=== PATIENT | female | born 1945 | race Caucasian/White ===

== ENCOUNTER → 2020-07-20 | Outpatient (CLI) | payer MEDICARE ==
--- NOTE | 2020-07-20 13:03 | PE ---
Nuclear medicine PET/CT HISTORY: Breast carcinoma bilateral, initial, C 50.411 No comparisons Patient received 10.7 mCi F-18 FDG intravenously delayed scanning was performed through the skull bas e to the mid thighs. Localization and attenuation correction CT scan was performed. Chest and neck: The supraclavicular node on the left shows enlargement, there is associated hypermeta bolic uptake, SUV 8.3, the node measures approximately 2.3 cm. Left axillary nodes show mild uptake b ilaterally in the SVC 2.5 on the left, 2.4 the right, there is likely postop change on the right. Sub carinal node shows hypermetabolic uptake. Internal mammary node is present on the right, SUV 2 and al rogers the anterior mediastinum, axial image #90 mild uptake, SUV 2.6. Incidental note of coronary arter y calcifications. There is mild uptake along the musculature the lower aspect of the left lateral destiny st, patient is post bilateral mastectomy. No evident lung mass, no pleural pericardial effusion. ABDOMEN: There is an hypodense foci within the liver towards the dome anteriorly in the right lobe, l esion measures 2 cm with associated hypermetabolic uptake SUV 4.3 and also hypodense focus towards th e ankur hepatus and along the falciform ligament is associated uptake, there is uptake with associate d adenopathy the level of the ankur, there is associated hypermetabolic uptake, SUV 7.4. Contracted g allbladder noted incidentally. There is retroperitoneal adenopathy with associated hypermetabolic upt augusto in the aortocaval level, SUV 4.7-5.9, 7.2 in the retroperitoneum. Right kidney shows marked hydro nephrosis, there is Only thinned cortex on the right suggesting chronic finding. There is uptake seen along the level of the bowel, some high dense material is present which may be due to luminal medication which is radiod ense. Uptake along the bowel is felt likely to be physiologic. There is adenopathy along the right pe lvic sidewall with associated uptake, bilateral external iliac chain nodes also shows some uptake SUV 7.1-7.6. Noted centrally within the pelvis, axial image 198 shows some uptake. Some soft tissue dens ity just deep to the umbilical hernia also shows uptake, scattered mesenteric nodes present with some associated uptake, SUV 6.7. There is some nodularity at the posterior aspect of the liver possibly r ight adrenal gland, SUV 3.3 Osseous structures show some possible posterior rib uptake on the right lower ribs, SUV 4.6. There is facet arthropathy, degenerative disc change in the lower lumbar spine. impression: Metastatic disease
== END | disposition home or self-care (01) ==
LOC: RADPETMAIN 08:56
PROVIDERS: ATTEND Internal Medicine Hematology & Oncology
DX: C50.411 Malignant neoplasm of upper-outer quadrant of right female breast (principal); Z90.13 Acquired absence of bilateral breasts and nipples
CPT/HCPCS: 78815; A9552

== ENCOUNTER 2020-08-13 12:06 | Emergency (ER) | payer MEDICARE ==
[2020-08-13 12:23] VITALS: TEMP 97.9
[2020-08-13] MEDS ORDERED: SODIUM CHLORIDE 0.9% 500 ML 500 ML IV ONE (12:39)
[2020-08-13] MEDS ORDERED: SODIUM CHLORIDE 0.9% 1,000 ML IV ONE (12:39)
--- NOTE | 2020-08-13 12:51 | ED ---
General Adult HPI - General Chief complaint: Nausea/Vomiting/Diarrhea Stated complaint: nausea from chemo Time Seen by Provider: 08/13/20 12:15 Source: patient, RN notes reviewed, old records reviewed Mode of arrival: ambulatory Limitations: no limitations - History of Present Illness Initial comments: This is a 75-year-old female who presents emergency Department stating that she is feeling weak little lightheaded and has had some occasional vomiting. Patient also states she's had diarrhea since she started chemo 2 weeks ago but over the last 2 days she's been taken Imodium she's had no more diarrhea. Patient denies any chest pain difficulty breathing or shortness of breath she states she has an occasional dry cough. Patient denies any headache patient denies numbness or focal weakness. Patient denies any specific area of abdominal pain however she states she does have a little bit of cramping occasion the left side now that she is not having diarrhea. - Related Data Home Medications Medication Instructions Recorded Confirmed Abemaciclib [Verzenio] 150 mg PO BID 08/13/20 08/13/20 Acetaminophen Tab [Tylenol Tab] 500 mg PO BID 08/13/20 08/13/20 Aspirin EC [Ecotrin Low Dose] 81 mg PO DAILY 08/13/20 08/13/20 Cholecalciferol [Vitamin D3 (25 50 mcg PO DAILY 08/13/20 08/13/20 Mcg = 1000 Iu)] Cholestyramine (with Sugar) 4 gm PO HS 08/13/20 08/13/20 [Questran] FLUoxetine HCL [PROzac] 40 mg PO DAILY 08/13/20 08/13/20 Ibuprofen [Motrin] 600 mg PO DAILY PRN 08/13/20 08/13/20 Letrozole [Femara] 2.5 mg PO DAILY 08/13/20 08/13/20 Ondansetron HCl [Zofran] 4 mg PO BID 08/13/20 08/13/20 Ondansetron [Zofran ODT] 4 mg PO Q6H 08/13/20 08/13/20 Venlafaxine HCl ER [Effexor Xr] 150 mg PO DAILY 08/13/20 08/13/20 Vitamin B Complex 1 cap PO DAILY 08/13/20 08/13/20 Zinc Sulfate [Orazinc] 220 mg PO DAILY 08/13/20 08/13/20 diphenhydrAMINE HCL [Benadryl] 25 mg PO DAILY PRN 08/13/20 08/13/20 lisinopriL 40 mg PO DAILY 08/13/20 08/13/20 traZODone HCL 150 mg PO HS 08/13/20 08/13/20 Allergies Allergy/AdvReac Type Severity Reaction Status Date / Time No Known Allergies Allergy Verified 08/13/20 15:06 Review of Systems ROS Statement: Those systems with pertinent positive or pertinent negative responses have been documented in the HPI. ROS Other: All systems not noted in ROS Statement are negative. Past Medical History Past Medical History: Cancer, Hypertension, Myocardial Infarction ([place]) Additional Past Medical History / Comment(s): breast and ovarian cancer History of Any Multi-Drug Resistant Organisms: None Reported Past Surgical History: Breast Surgery, Heart Catheterization With Stent, Hysterectomy Past Psychological History: Anxiety Smoking Status: Former smoker Past Alcohol Use History: None Reported Past Drug Use History: None Reported General Exam - General Exam Comments Initial Comments: GENERAL: Patient is well-developed and well-nourished. Patient is nontoxic and well- hydrated and is in mild distress. ENT: Neck is soft and supple. No significant lymphadenopathy is noted. Oropharynx is clear. Moist mucous membranes. Neck has full range of motion without eliciting any pain. EYES: The sclera were anicteric and conjunctiva were pink and moist. Extraocular movements were intact and pupils were equal round and reactive to light. Eyelids were unremarkable. PULMONARY: Unlabored respirations. Good breath sounds bilaterally. No audible rales rhonchi or wheezing was noted. CARDIOVASCULAR: There is a regular rate and rhythm without any murmurs gallops or rubs. ABDOMEN: Soft and nontender with normal bowel sounds. SKIN: Skin is clear with no lesions or rashes and otherwise unremarkable. NEUROLOGIC: Patient is alert and oriented x3. Cranial nerves II through XII are grossly intact. Motor and sensory are also intact. Normal speech, volume and content. Symmetrical smile. MUSCULOSKELETAL: Normal extremities with adequate strength and full range of motion. No lower extremity swelling or edema. No calf tenderness. LYMPHATICS: No significant lymphadenopathy is noted PSYCHIATRIC: Normal psychiatric evaluation. Limitations: no limitations Course Vital Signs 08/13/20 08/13/20 08/13/20 12:16 14:23 15:23 Temperature 97.9 F Pulse Rate 85 82 Respiratory 18 22 20 Rate Blood Pressure 94/57 163/79 152/72 O2 Sat by Pulse 98 98 99 Oximetry 08/13/20 16:23 Temperature Pulse Rate 84 Respiratory 18 Rate Blood Pressure 147/80 O2 Sat by Pulse 99 Oximetry Medical Decision Making - Lab Data Result diagrams: 08/13/20 12:43 08/13/20 12:43 Lab Results 08/13/20 08/13/20 08/13/20 Range/Units 12:43 12:43 12:43 WBC 4.3 (3.8-10.6) k/uL RBC 3.66 L (3.80-5.40) m/uL Hgb 10.6 L (11.4-16.0) gm/dL Hct 31.4 L (34.0-46.0) % MCV 85.7 (80.0-100.0) fL MCH 28.9 (25.0-35.0) pg MCHC 33.7 (31.0-37.0) g/dL RDW 13.5 (11.5-15.5) % Plt Count 240 (150-450) k/uL MPV 6.9 Neutrophils % 69 % Lymphocytes % 25 % Monocytes % 4 % Eosinophils % 0 % Basophils % 0 % Neutrophils # 3.0 (1.3-7.7) k/uL Lymphocytes # 1.1 (1.0-4.8) k/uL Monocytes # 0.2 (0-1.0) k/uL Eosinophils # 0.0 (0-0.7) k/uL Basophils # 0.0 (0-0.2) k/uL Sodium 138 (137-145) mmol/L Potassium 3.7 (3.5-5.1) mmol/L Chloride 111 H (98-107) mmol/L Carbon Dioxide 19 L (22-30) mmol/L Anion Gap 8 mmol/L BUN 31 H (7-17) mg/dL Creatinine 1.11 H (0.52-1.04) mg/dL Est GFR (CKD-EPI)AfAm 57 (>60 ml/min/1.73 sqM) Est GFR (CKD-EPI)NonAf 50 (>60 ml/min/1.73 sqM) Glucose 118 H (74-99) mg/dL Calcium 9.8 (8.4-10.2) mg/dL Magnesium 1.6 (1.6-2.3) mg/dL Total Bilirubin 0.2 (0.2-1.3) mg/dL AST 29 (14-36) U/L ALT 43 H (4-34) U/L Alkaline Phosphatase 129 H (38-126) U/L Total Protein 7.2 (6.3-8.2) g/dL Albumin 3.8 (3.5-5.0) g/dL Urine Color Yellow Urine Appearance Cloudy H (Clear) Urine pH 5.5 (5.0-8.0) Ur Specific [place] 1.021 (1.001-1.035) Urine Protein 1+ H (Negative) Urine Glucose (UA) Negative (Negative) Urine Ketones Negative (Negative) Urine Blood Moderate H (Negative) Urine Nitrite Negative (Negative) Urine Bilirubin Negative (Negative) Urine Urobilinogen <2.0 (<2.0) mg/dL Ur Leukocyte Esterase Negative (Negative) Urine RBC 114 H (0-5) /hpf Urine WBC 5 (0-5) /hpf Ur Squamous Epith Cells <1 (0-4) /hpf Urine Bacteria Occasional H (None) /hpf Hyaline Casts 6 H (0-2) /lpf Granular Casts 4 (0) /lpf Urine Mucus Rare H (None) /hpf Disposition Clinical Impression: Medication adverse effect, Nausea & vomiting, Diarrhea, Dehydration, Hematuria Disposition: HOME SELF-CARE Condition: Good Instructions (If sedation given, give patient instructions): Acute Nausea and Vomiting (ED), Acute Diarrhea (ED) Additional Instructions: Patient should continue taking Zofran prior to every meal. Patient isn't to try to have more oral intake. Patient should follow-up with her oncologist. Is patient prescribed a controlled substance at d/c from ED?: No Referrals: Marco Antonio Ochoa MD [STAFF PHYSICIAN] - 1-2 days Time of Disposition: 16:22
[2020-08-13 13:11] LABS: Basophils % (A) 0 %; Eosinophils % (A) 0 %; HCT 31.4 % (34.0-46.0); HGB 10.6 gm/dL (11.4-16.0); Lymphocytes # (A) 1.1 k/uL (1.0-4.8); Lymphocytes % (A) 25 %; MCH 28.9 pg (25.0-35.0); MCHC 33.7 g/dL (31.0-37.0); MCV 85.7 fL (80.0-100.0); Mean Platelet Volume 6.9; Monocytes # (A) 0.2 k/uL (0-1.0); Monocytes % (A) 4 %; Neutrophils % (A) 69 %; Platelet Count 240 k/uL (150-450); RBC 3.66 m/uL (3.80-5.40); RDW 13.5 % (11.5-15.5); WBC 4.3 k/uL (3.8-10.6)
[2020-08-13 13:24] LABS: Albumin 3.8 g/dL (3.5-5.0); Calcium 9.8 mg/dL (8.4-10.2); Magnesium 1.6 mg/dL (1.6-2.3); Potassium 3.7 mmol/L (3.5-5.1); Total Bilirubin 0.2 mg/dL (0.2-1.3); Total Protein 7.2 g/dL (6.3-8.2)
[2020-08-13 15:10] LABS: Appearance,Urine Cloudy (Clear); Bacteria,Urine Occasional /hpf; Bilirubin,Urine Negative (Negative); Blood,Urine Moderate (Negative); Color,Urine Yellow; Glucose,Urine (UA) Negative (Negative); Granular Casts,Urine 4 /lpf (0); Hyaline Casts,Urine 6 /lpf (0-2); Ketones,Urine Negative (Negative); Leukocyte Esterase,Urine Negative (Negative); Mucus,Urine Rare /hpf; Nitrite,Urine Negative (Negative); PH, Urine 5.5 (5.0-8.0); Protein,Urine 1+ (Negative); RBC,Urine 114 /hpf (0-5); Specific Gravity,Urine 1.021 (1.001-1.035); Squamous Epithelial Cell,Urine <1 /hpf (0-4); Urobilinogen,Urine <2.0 mg/dL (<2.0); WBC,Urine 5 /hpf (0-5)
--- NOTE | 2020-08-13 15:31 | XR ---
EXAMINATION TYPE: XR KUB DATE OF EXAM: 08/13/2020 3:08 PM CLINICAL HISTORY: Abdominal pain. History of metastatic breast cancer. TECHNIQUE: Two Upright KUB images of the abdomen are obtained. COMPARISON: PET/CT July 20, 2020. FINDINGS: Lung bases are clear. New Prominent small and large bowel loops with multiple air-fluid le vels. Surgical sutures left lower quadrant are redemonstrated. Surgical clips overlying the mid to lo wer abdomen into the pelvis are redemonstrated. Surgical clips overlie the right breast. No free air. Gas seen in nondistended rectum. Spurring and disc space narrowing right L4-L5 level. IMPRESSION: Overall nonspecific bowel gas pattern currently.
[2020-08-13] MEDS ORDERED: ONDANSETRON 4 MG/2 ML VIAL IVP STA (16:03)
[2020-08-13 16:54] VITALS: BP 147/80; PULSE 84; RESP 18
== END 2020-08-13 18:13 | disposition home or self-care (01) ==
LOC: EC 12:06
DX: R11.2 Nausea with vomiting, unspecified (principal); R19.7 Diarrhea, unspecified; E86.0 Dehydration; R31.9 Hematuria, unspecified; T45.1X5A Adverse effect of antineoplastic and immunosuppressive drugs, initial encounter; I10 Essential (primary) hypertension; I25.10 Atherosclerotic heart disease of native coronary artery without angina pectoris; F41.9 Anxiety disorder, unspecified; Z87.891 Personal history of nicotine dependence; Z79.82 Long term (current) use of aspirin
CPT/HCPCS: 36415; 80053; 83735; 85025; 81001; 74018; 99284; 96374; 96361 ×4; J2405

== ENCOUNTER → 2020-08-21 | Outpatient (CLI) | payer MEDICARE ==
--- NOTE | 2020-08-21 16:12 | XR ---
EXAMINATION TYPE: XR chest 2V DATE OF EXAM: 08/21/2020 COMPARISON: NONE HISTORY: C50.411 C56.1 M10.9 I10 and shortness of breath TECHNIQUE: Frontal and lateral views of the chest are obtained. FINDINGS: There is no focal air space opacity, pleural effusion, or pneumothorax seen. The cardiac silhouette size is within normal limits. Aorta is dense. Patient is rotated. Surgical clips are note d over the right lower chest. Air coronary artery calcifications. The osseous structures are intact. IMPRESSION: No acute cardiopulmonary process. Artery disease.
== END | disposition home or self-care (01) ==
LOC: RADXRMAIN 15:48
PROVIDERS: ATTEND Internal Medicine Hematology & Oncology
DX: I25.10 Atherosclerotic heart disease of native coronary artery without angina pectoris (principal)
CPT/HCPCS: 71046

== ENCOUNTER 2022-03-28 11:55 | Emergency (ER) | payer MEDICARE ==
--- NOTE | 2022-03-28 13:18 | XR ---
EXAMINATION TYPE: XR KUB DATE OF EXAM: 03/28/2022 COMPARISON: 08/13/2020 INDICATION: Abdomen pain TECHNIQUE: Single view abdomen upright view FINDINGS: Colonic bowel gas appears to be present. Some nonspecific small bowel gas within the midabdomen. Ther e may be a colostomy on the left. There is a stent like structure within the mid pelvis. Correlate wi th patient history. Multiple surgical clips are present. Organomegaly is not evident. Psoas margins are normal. IMPRESSION: 1. Nonspecific abdomen.
[2022-03-28] MEDS ORDERED: MORPHINE SULFATE 4 MG/ML SYRINGE IVP STA (13:48)
[2022-03-28] MEDS ORDERED: FAMOTIDINE 20 MG/2 ML VIAL IV STA (13:48)
[2022-03-28] MEDS ORDERED: SODIUM CHLORIDE 0.9% 500 ML 500 ML IV STA ×2 (13:48→15:16)
--- NOTE | 2022-03-28 13:51 | ED ---
General Adult HPI - General Chief complaint: Abdominal Pain Stated complaint: Abd Pain Time Seen by Provider: 03/28/22 13:26 Source: patient, RN notes reviewed Mode of arrival: ambulatory Limitations: no limitations - History of Present Illness Initial comments: Patient is a pleasant 76-year-old female presenting to the emergency Department with abdominal pain. Symptoms have worsened the past couple of days. Patient does have some chronic pain secondary to history of active ovarian cancer. Patient is currently on hormonal replacement for this. Patient states she is still tolerating oral intake. Patient is still having stool through her ostomy bag however may be somewhat less than normal. - Related Data Home Medications Medication Instructions Recorded Confirmed Acetaminophen Tab [Tylenol Tab] 1,000 mg PO Q6H PRN 08/13/20 03/28/22 FLUoxetine HCL [PROzac] 40 mg PO DAILY 08/13/20 03/28/22 Ibuprofen [Motrin] 600 mg PO Q8H PRN 08/13/20 03/28/22 Letrozole [Femara] 2.5 mg PO DAILY 08/13/20 03/28/22 Venlafaxine HCl ER [Effexor Xr] 150 mg PO DAILY 08/13/20 03/28/22 lisinopriL 40 mg PO DAILY 08/13/20 03/28/22 traZODone HCL 150 mg PO HS 08/13/20 03/28/22 Atorvastatin [Lipitor] 40 mg PO HS 03/28/22 03/28/22 carvediloL [Coreg] 6.25 mg PO BID 03/28/22 03/28/22 Allergies Allergy/AdvReac Type Severity Reaction Status Date / Time No Known Allergies Allergy Verified 03/28/22 14:44 Review of Systems ROS Statement: Those systems with pertinent positive or pertinent negative responses have been documented in the HPI. ROS Other: All systems not noted in ROS Statement are negative. Constitutional: Denies: fever Eyes: Denies: eye pain ENT: Denies: ear pain Cardiovascular: Denies: chest pain Endocrine: Denies: fatigue Gastrointestinal: Reports: as per HPI, abdominal pain Genitourinary: Denies: dysuria Skin: Denies: rash Neurological: Denies: weakness Past Medical History Past Medical History: Cancer, Hypertension, Myocardial Infarction ([place]) Additional Past Medical History / Comment(s): breast and ovarian cancer History of Any Multi-Drug Resistant Organisms: None Reported Past Surgical History: Breast Surgery, Heart Catheterization With Stent, Hysterectomy Past Psychological History: Anxiety Smoking Status: Former smoker Past Alcohol Use History: None Reported Past Drug Use History: None Reported General Exam Limitations: no limitations General appearance: alert, in no apparent distress Head exam: Present: atraumatic Eye exam: Present: normal appearance Neck exam: Present: normal inspection Respiratory exam: Present: normal lung sounds bilaterally Cardiovascular Exam: Present: regular rate, normal rhythm Expanded Peripheral pulses: 2+: Dorsalis Pedis (R), Dorsalis Pedis (L) GI/Abdominal exam: Present: soft, tenderness (Moderate left-sided tenderness), diminished bowel sounds. Absent: distended, guarding, rebound, rigid, pulsatile mass Extremities exam: Present: normal inspection Neurological exam: Present: alert Psychiatric exam: Present: normal affect, normal mood Skin exam: Present: normal color Course Vital Signs 03/28/22 03/28/22 12:16 14:18 Temperature 98 F Pulse Rate 80 86 Respiratory 16 18 Rate Blood Pressure 94/55 126/89 O2 Sat by Pulse 99 Oximetry EKG Findings - EKG Results: EKG: interpreted by ERMD, sinus rhythm, normal axis, normal QRS, normal ST/T Medical Decision Making - Medical Decision Making Case was discussed with Dr. Obrien who does recommend transfer secondary to bowel stent. Patient again reevaluated. Patient is resting comfortably in bed. Patient and family updated on results and concerns as well as recommendation for transfer. They're made aware that if this is obstruction, lack of treatment could lead to further or worsened surgery and potentially life-threatening. Despite this they do refuse transfer. They will leave AGAINST MEDICAL ADVICE. Patient states she feels fine and agrees with what daughter says. Daughter does demonstrate medical decision making and states if symptoms worsen they will take patient to [facility]. This is where patient does have her treatment. Patient has discontinued chemotherapy per daughter. - Lab Data Result diagrams: 03/28/22 14:12 03/28/22 14:12 Lab Results 03/28/22 03/28/22 03/28/22 Range/Units 14:12 14:12 14:12 WBC 12.4 H (3.8-10.6) k/uL RBC 3.31 L (3.80-5.40) m/uL Hgb 8.7 L (11.4-16.0) gm/dL Hct 27.5 L (34.0-46.0) % MCV 83.0 (80.0-100.0) fL MCH 26.2 (25.0-35.0) pg MCHC 31.5 (31.0-37.0) g/dL RDW 14.9 (11.5-15.5) % Plt Count 338 (150-450) k/uL MPV 8.0 Neutrophils % 89 % Lymphocytes % 6 % Monocytes % 3 % Eosinophils % 0 % Basophils % 0 % Neutrophils # 11.0 H (1.3-7.7) k/uL Lymphocytes # 0.8 L (1.0-4.8) k/uL Monocytes # 0.4 (0-1.0) k/uL Eosinophils # 0.0 (0-0.7) k/uL Basophils # 0.0 (0-0.2) k/uL Hypochromasia Slight PT 11.8 (9.0-12.0) sec INR 1.1 (<1.2) APTT 28.2 (22.0-30.0) sec Sodium 135 L (137-145) mmol/L Potassium 3.6 (3.5-5.1) mmol/L Chloride 103 (98-107) mmol/L Carbon Dioxide 23 (22-30) mmol/L Anion Gap 9 mmol/L BUN 42 H (7-17) mg/dL Creatinine 1.62 H (0.52-1.04) mg/dL Est GFR (CKD-EPI)AfAm 36 (>60 ml/min/1.73 sqM) Est GFR (CKD-EPI)NonAf 31 (>60 ml/min/1.73 sqM) Glucose 96 (74-99) mg/dL Calcium 8.6 (8.4-10.2) mg/dL Total Bilirubin 0.4 (0.2-1.3) mg/dL AST 92 H (14-36) U/L ALT 88 H (4-34) U/L Alkaline Phosphatase 173 H (38-126) U/L Troponin I (0.000-0.034) ng/mL Total Protein 6.5 (6.3-8.2) g/dL Albumin 3.1 L (3.5-5.0) g/dL Amylase 47 (30-110) U/L Lipase 53 (23-300) U/L 03/28/22 Range/Units 14:12 WBC (3.8-10.6) k/uL RBC (3.80-5.40) m/uL Hgb (11.4-16.0) gm/dL Hct (34.0-46.0) % MCV (80.0-100.0) fL MCH (25.0-35.0) pg MCHC (31.0-37.0) g/dL RDW (11.5-15.5) % Plt Count (150-450) k/uL MPV Neutrophils % % Lymphocytes % % Monocytes % % Eosinophils % % Basophils % % Neutrophils # (1.3-7.7) k/uL Lymphocytes # (1.0-4.8) k/uL Monocytes # (0-1.0) k/uL Eosinophils # (0-0.7) k/uL Basophils # (0-0.2) k/uL Hypochromasia PT (9.0-12.0) sec INR (<1.2) APTT (22.0-30.0) sec Sodium (137-145) mmol/L Potassium (3.5-5.1) mmol/L Chloride (98-107) mmol/L Carbon Dioxide (22-30) mmol/L Anion Gap mmol/L BUN (7-17) mg/dL Creatinine (0.52-1.04) mg/dL Est GFR (CKD-EPI)AfAm (>60 ml/min/1.73 sqM) Est GFR (CKD-EPI)NonAf (>60 ml/min/1.73 sqM) Glucose (74-99) mg/dL Calcium (8.4-10.2) mg/dL Total Bilirubin (0.2-1.3) mg/dL AST (14-36) U/L ALT (4-34) U/L Alkaline Phosphatase (38-126) U/L Troponin I 0.044 H* (0.000-0.034) ng/mL Total Protein (6.3-8.2) g/dL Albumin (3.5-5.0) g/dL Amylase (30-110) U/L Lipase (23-300) U/L - Radiology Data Radiology results: report reviewed (As discussed with radiologist there is concern for bowel stent possibly folding and partially obstructing bowel. There is also metastases to liver and large lymph nodes.) Interpreted by me: Abdominal x-ray shows no acute process. There is stent present in the pelvic region Disposition Clinical Impression: Abdominal pain Disposition: Left Against Medical Advice Condition: Serious Instructions (If sedation given, give patient instructions): Abdominal Pain (ED), Bowel Obstruction (ED) Additional Instructions: Please do follow-up with [facility] ER as soon as possible inclu ding today or tomorrow. Return for increased pain, fever, vomiting, worsening symptoms or any other concerns. Please have primary care physician also recheck lab work in the next day or 2 for recheck. You are leaving AGAINST MEDICAL ADVICE. Is patient prescribed a controlled substance at d/c from ED?: No Referrals: Marco Antonio Wyatt DO [Primary Care Provider] - 1-2 days Time of Disposition: 17:28
[2022-03-28 14:19] VITALS: RESP 18
[2022-03-28 14:36] LABS: Basophils % (A) 0 %; Eosinophils % (A) 0 %; HCT 27.5 % (34.0-46.0); HGB 8.7 gm/dL (11.4-16.0); Hypochromasia Slight; Lymphocytes # (A) 0.8 k/uL (1.0-4.8); Lymphocytes % (A) 6 %; MCH 26.2 pg (25.0-35.0); MCHC 31.5 g/dL (31.0-37.0); Monocytes # (A) 0.4 k/uL (0-1.0); Monocytes % (A) 3 %; Neutrophils % (A) 89 %; Platelet Count 338 k/uL (150-450); RBC 3.31 m/uL (3.80-5.40); RDW 14.9 % (11.5-15.5); WBC 12.4 k/uL (3.8-10.6)
[2022-03-28 14:55] LABS: INR 1.1 (<1.2); Partial Thromboplastin Time 28.2 sec (22.0-30.0); Prothrombin Time 11.8 sec (9.0-12.0)
[2022-03-28 15:03] LABS: Albumin 3.1 g/dL (3.5-5.0); Calcium 8.6 mg/dL (8.4-10.2); Potassium 3.6 mmol/L (3.5-5.1); Total Bilirubin 0.4 mg/dL (0.2-1.3); Total Protein 6.5 g/dL (6.3-8.2)
--- NOTE | 2022-03-28 16:41 | CT ---
EXAMINATION TYPE: CT abdomen pelvis w con DATE OF EXAM: 03/28/2022 COMPARISON: 07/20/2020 PET/CT INDICATION: abdominal pain, nausea, vomiting. hx of breast and ovarian ca. DLP: 576.4 mGycm, Automated exposure control for dose reduction was used. CONTRAST: 80cc mL of Isovue 300. Study performed without Oral Contrast TECHNIQUE: Axial images were obtained from above the diaphragm to the pubic rami in the axial plane a t 5 mm thick sections. Reconstructed images are reviewed on the computer in the coronal plane. FINDINGS: Limited CT sections are obtained the lung bases. There is a small right pleural effusion. Mild comp ressive atelectasis is adjacent. CT ABDOMEN: There is an ostomy in the left upper quadrant. Liver: There is an ill-defined hypodensity along the superior margin of the right medial liver. Under lying metastasis is not excluded. Spleen: This has a heterogenous appearance. Correlate with the patient's history. In the proper clini te setting fracture could be considered. Metastasis should be considered as well. This could be rela ester to phase of contrast. Pancreas: Normal Adrenal glands: The adrenal glands are normal. Gallbladder: Normal Kidneys: Right kidney is atrophic. Small cortical renal cyst on the inferior medial pole right kidney . No masses are evident. No hydronephrosis is present. Delayed images were obtained through the ki dneys, which remain unremarkable. Aorta: Vascular calcification is within the aorta. Inferior vena cava: Normal. CT PELVIS: There is a stent like structure within the pelvis. This appears to have a fold or kink. In may be closed at this time. Consider potential obstruction at this level. No dilated loops of bowel are evident. Some minimal contrast type material appears to be through the ascending colon region. Scattered small bowel loops containing fluid around the upper limits of mark l for size. A few air-fluid levels are present. Correlate with the patient's symptoms. Appendix: Not visualized Urinary bladder: Normal. Genitourinary structures: Uterus and ovaries are not identified. No large cystic structures or free f luid is identified. Omental caking is not identified. Osseous structures: No suspicious lytic or sclerotic lesions. Lymphadenopathy: Prominent inguinal adenopathy is present with several lateral lymph nodes measuring greater than 1 cm. These have increased in size over the interim. Intraperitoneal soft tissue nodular density is present. Image series 201 image 50, series 202 image 5 4 . Peritoneal anesthetic deposit should be considered. This is a new finding from comparison. Report was called and case discussed with the emergency room physician by Dr. Tapia by telephone at 1637 hours 03/28/2022. IMPRESSIONS: 1. There appears to be a bowel stent which is folded and may be obstructed. Correlate with the patie nt's history. There are findings suggestive for ileus versus small bowel obstruction within the pelvi s. 2. Enlarged bilateral inguinal adenopathy. At least one irregular nodular deposit in the right hemipe lvis is present. Metastatic disease should be considered. Recommend PET/CT for additional evaluation. 3. Irregular appearance of the superior right lobe liver. Metastasis should be considered. 4. Irregular pattern within the spleen. If there is history of trauma, splenic laceration should be c onsidered. This could be related to phase of contrast or metastatic disease as well.
[2022-03-28 19:33] VITALS: BP 122/84; PULSE 84; TEMP 98.1
== END 2022-03-28 18:05 | disposition left against medical advice (07) ==
LOC: EC 11:55
DX: R10.9 Unspecified abdominal pain (principal); I10 Essential (primary) hypertension; I25.2 Old myocardial infarction; F41.9 Anxiety disorder, unspecified; Z87.891 Personal history of nicotine dependence; Z79.899 Other long term (current) drug therapy; Z53.29 Procedure and treatment not carried out because of patient's decision for other reasons
CPT/HCPCS: 93005; 80053; 82150; 83690; 84484; 85025; 85610; 85730; 74018; 74177; 99285; 96374; 96375 ×2; 96361 ×4; J2270; J1642; Q9967